=== PATIENT | female | born 1955 | race Caucasian/White ===

== ENCOUNTER 2019-06-19 11:28 | Emergency (ER) | payer SELFPAY ==
--- NOTE | 2019-06-19 15:15 | Diagnostic Imaging Report ---
<p>Your browser does not support iframes.</p> JOSE GUERRERO [facility] [address] [facility] [address] [address] Report Submission Date: Jun 19, 2019 12:05:01 PM CDT Patient Study Name: NADEGE MARIEE Date: Jun 19, 2019 11:37:38 AM CDT Modality Type: DX Gender: F Description: FOOT 3 VIEWS OR MORE : 53 Institution: [facility] Physician: JOSE GUERRERO Left foot 3 views Clinical history: Trauma Moderate osteoarthritis. No visible fractures, dislocation or bone destruction. No visible radiopaque foreign bodies. calcaneal spur is noted. Impression: Osteoarthritis with calcaneal spur without fractures Electronically signed on Jun 19, 2019 12:05:01 PM CDT by: Horacio MAKI
== END 2019-06-19 12:30 ==
LOC: ED 11:28
DX: S90.32XA Contusion of left foot, initial encounter (principal); W20.8XXA Other cause of strike by thrown, projected or falling object, initial encounter
CPT/HCPCS: 73630; 99281; 99282